=== PATIENT | male | born 1975 | race Hispanic/Latino ===

== ENCOUNTER 2019-07-01 11:20 | Inpatient (IN) | payer OTHER ==
[~2019-07-01] VITALS: Ht 175.3 cm; Wt 114.3 kg
[2019-07-01] MEDS ORDERED: ACETAMINOPHEN 1000 MG/100 ML IV STA (12:01)
[2019-07-01] MEDS ORDERED: SODIUM CHLORIDE 0.9% 1000ML 1,000 ML IV STA (12:01)
[2019-07-01] MEDS ORDERED: SODIUM CHLORIDE 0.9% 1000ML 1,000 ML IV SCH (12:15)
[2019-07-01] MEDS ORDERED: CEFEPIME HCL 1 GM VIAL IV SCH (12:15)
[2019-07-01] MEDS ORDERED: CEFEPIME 1GM/NS 0.9% 50 ML 50 ML IV ONE (12:30)
[2019-07-01 12:34] LABS: BASOPHILS % 0.2 % (0.0-1.0); EOSINOPHILS # (AUTO) 0.1 (0.0-0.4); EOSINOPHILS % 0.6 % (0.0-6.0); HEMATOCRIT 45.8 % (38.2-49.6); HEMOGLOBIN 17.8 g/dL (14.0-18.0); LYMPHOCYTES # (AUTO) 1.9 (1.0-3.2); LYMPHOCYTES % 16.2 % (18.0-39.1); MEAN CORPUSCULAR HEMOGLOBIN 31.8 pg (28-32); MEAN CORPUSCULAR HGB CONC 38.9 g/dL (31-35); MEAN CORPUSCULAR VOLUME 81.9 fL (81-99); MONOCYTES # (AUTO) 0.8 (0.2-0.8); MONOCYTES % 7.3 % (4.4-11.3); NEUTROPHILS # (AUTO) 8.6 (2.1-6.9); NEUTROPHILS % 75.3 % (38.7-80.0); PLATELET COUNT 197 x10e3/uL (140-360); RED BLOOD COUNT 5.59 x10e6/uL (4.3-5.7); RED CELL DISTRIBUTION WIDTH 13.2 % (11.7-14.4)
[2019-07-01 12:37] LABS: BILIRUBIN,URINE SMALL (NEGATIVE); CLARITY,URINE CLEAR (CLEAR); COLOR,URINE YELLOW (YELLOW); LEUKOCYTE ESTERASE ,URINE NEGATIVE (NEGATIVE); NITRITE,URINE NEGATIVE (NEGATIVE); PROTEIN,URINE DIPSTICK 2+ (NEGATIVE); URINE UROBILINOGEN 0.2 mg/dL (0.2 - 1)
[2019-07-01 12:48] LABS: KETONES,URINE 2+ (NEGATIVE)
[2019-07-01 12:50] LABS: BACTERIA,URINE RARE /HPF; EPITHELIAL CELLS,URINE FEW /LPF; RBC,URINE 0-5 /HPF (0-5)
[2019-07-01 12:55] LABS: ALANINE AMINOTRANSFERASE 28 IU/L (0-55); ALBUMIN 3.8 g/dL (3.5-5.0); ALBUMIN/GLOBULIN RATIO 0.7 (0.8-2.0); ALKALINE PHOSPHATASE 75 IU/L (40-150); ANION GAP 18.8 mmol/L (8-16); BLOOD UREA NITROGEN 6 mg/dL (7-26); BUN/CREATININE RATIO 7 (6-25); CALCIUM 9.7 mg/dL (8.4-10.2); CARBON DIOXIDE 21 mmol/L (22-29); CHLORIDE 92 mmol/L (98-107); CREATININE, SERUM 0.82 mg/dL (0.72-1.25); EST GLOMERULAR FILTRATION RATE > 60 ML/MIN (60-); GLUCOSE 301 mg/dL (74-118); POTASSIUM 3.8 mmol/L (3.5-5.1); SODIUM 128 mmol/L (136-145)
[2019-07-01] MEDS ORDERED: ACETAMINOPHEN 325 MG TAB PO ONE (13:15)
--- NOTE | 2019-07-01 14:07 | Diagnostic Imaging Report ---
EXAMINATION: CT of the abdomen and pelvis with contrast. TECHNIQUE: Helical CT images of the abdomen and pelvis were performed from the lung bases to the lesser trochanters after the intravenous administration of 100 cc of Isovue 300 and the oral administration of none. Coronal and sagittal reformatted images were obtained.Dose modulation, iterative reconstruction, and/or weight based adjustment of the mA/kV was utilized to reduce the radiation dose to as low as reasonably achievable. COMPARISON: None. CLINICAL HISTORY:Abdominal pain DISCUSSION: ABDOMEN/PELVIS: LOWER THORAX:Unremarkable. HEPATOBILIARY: Hepatic steatosis without focal lesion. No intra-or extrahepatic biliary ductal dilation. The gallbladder is normal. SPLEEN: No splenomegaly. PANCREAS: Peripancreatic stranding extending superior to the pancreas. ADRENALS: No adrenal nodules. KIDNEYS/URETERS: No hydronephrosis, stones, or solid mass lesions. PELVIC ORGANS/BLADDER: The bladder is normal. PERITONEUM/RETROPERITONEUM: No free air or fluid. LYMPH NODES: No intra-abdominal, retroperitoneal, pelvic or inguinal lymphadenopathy. VESSELS: Unremarkable. GI TRACT: No distention or wall thickening. Appendix is normal. BONES AND SOFT TISSUE: No bony destructive lesions. No soft tissue abnormalities. IMPRESSION: Peripancreatic stranding may reflect uncomplicated pancreatitis. Correlate with laboratory values. Signed by: Dr. Chintan Cotter M.D. on 07/01/2019 2:03 PM
[2019-07-01] MEDS ORDERED: SODIUM CHLORIDE 0.9% 50ML 50 ML ONE (14:34)
[2019-07-01] MEDS ORDERED: IOPAMIDOL 370 MG/ML 200 ML INFUS..BTL INJ ONE (14:34)
[2019-07-01] MEDS ORDERED: MORPHINE SULFATE 2 MG/ML SYR 1ML IV PRN (14:45)
[2019-07-01] MEDS: ONDANSETRON HCL INJ 2MG/ML 2ML 2 MG/ML VIAL IV PRN ×2 (15:19→21:03)
[2019-07-01] MEDS: MORPHINE SULFATE INJ 4 MG/ML INJ 1ML IV PRN ×2 (15:19→21:03)
--- OUTSIDE RECORDS SUMMARY | 2019-07-01 15:22 | XMS REPORT ---
Author Author [facility] Address Unknown Phone Unavailable Care Team Providers Care Marketing And Public Relations Manager Name Role Phone JENNIFER LOPEZ Unavailable Unavailable Problems This patient has no known problems. Allergies, Adverse Reactions, Alerts This patient has no known allergies or adverse reactions. Medications This patient has no known medications. Results Test Description Test Time Test Comments Text Results Atomic Results Result Comments CT ABDOMEN/PELVIS W 2019-07-01 14:00:00 [place] [address] Patient Name: NAZARIO KRISHNAN MR #: [id number] : 1975 Age/Sex: 44/M Req #: [id number] Adm Physician: Ordered by: JENNIFER LOPEZ DO Report #: [id number] Location: ER Room/Bed: Procedure: [id number] CT/CT ABDOMEN/PELVIS W Exam Date: 07/01/19 Exam Time: 1330 REPORT STATUS: Signed EXAMINATION: CT of the abdomen and pelvis with contr ast. TECHNIQUE: Helical CT images of the abdomen and pelvis were performed from the lung bases to the lesser trochanters after the intravenous administration of 100 cc of Isovue 300 and the oral administration of none. Coronal and sagittal reformatted images were obtained.Dose modulation, iterative reconstruction, and/or weight based adjustment of the mA/kV was utilized to reduce the radiation dose to as low as reasonably achievable. COMPARISON: None. CLINICAL HISTORY:Abdominal pain DISCUSSION: ABDOMEN/PELVIS: LOWER THORAX:Unremarkable. HEPATOBILIARY: Hepatic steatosis without focal lesion. No intra-or extrahepatic biliary ductal dilation. The gallbladder is normal. SPLEEN: No splenomegaly. PANCREAS: Peripancreatic stranding extending superior to the pancreas. ADRENALS: No adrenal nodules. KIDNEYS/URETERS: No hydronephrosis, stones, or solid mass lesions. PELVIC ORGANS/BLADDER: The bladder is normal. PERITONEUM/RETROPERITONEUM: No free air or fluid. LYMPH NODES: No intra- abdominal, retroperitoneal, pelvic or inguinal lymphadenopathy. VESSELS: Unremarkable. GI TRACT: No distention or wall thickening. Appendix is normal. BONES AND SOFT TISSUE: No bony destructive lesions. No soft tissue abnormalities. IMPRESSION: Peripancreatic stranding may reflect uncomplicated pancreatitis. Correlate with laboratory values. Signed by: Dr. Renata Millan M.D. on 07/01/2019 2:03 PM Dictated By: RENATA MILLAN MD 140 Transcribed By: ROSA on 07/01/19 1403 COPY TO: JENNIFER LOPEZ DO
--- NOTE | 2019-07-01 15:46 | NUR ---
Severe Sepsis Time: 1403 Source: Pancreatitis confirmed on CT 1403 SIRS: HR 118 RR 20 Organ Dysfunction: Lactic Acid (1249- resulted) Blood cultures collected (1232) #1 Lactic Acid collected (1157) Broad Spectrum Antibiotic: Cefepime given (1257) #2 Lactic Acid (1417) 1.7 SEP-1 Bundle complete, pt stable for admission under the impression of Pancreatitis
[2019-07-01 17:17] LABS: ANION GAP 18.2 mmol/L (8-16); BLOOD UREA NITROGEN 6 mg/dL (7-26); BUN/CREATININE RATIO 9 (6-25); CALCIUM 9.1 mg/dL (8.4-10.2); CARBON DIOXIDE 19 mmol/L (22-29); CHLORIDE 98 mmol/L (98-107); CREATININE, SERUM 0.68 mg/dL (0.72-1.25); EST GLOMERULAR FILTRATION RATE > 60 ML/MIN (60-); GLUCOSE 261 mg/dL (74-118); POTASSIUM 4.2 mmol/L (3.5-5.1); SODIUM 131 mmol/L (136-145)
--- NOTE | 2019-07-01 17:57 | History and Physical ---
HISTORY OF PRESENT ILLNESS: Joe Summers is 44-year-old male with past medical history positive for hypertension, diabetes, history of alcohol abuse, came to the hospital sent from the clinic due to severe abdominal pain and fever. He was found to have pancreatitis and admitted to the hospital. REVIEW OF SYSTEMS: CARDIOVASCULAR: No chest pain or palpitation. RESPIRATORY: No shortness of breath. No cough. GASTROINTESTINAL: No nausea, no vomiting, no diarrhea, but he does have diffuse abdominal pain. GENITOURINARY: No frequency or dysuria. ALLERGIES: NOT ALLERGIC TO ANYTHING. SOCIAL HISTORY: He does not smoke, but he does drink alcohol. PHYSICAL EXAMINATION: HEART: Showed regular rhythm. Normal S1, S2 sound. LUNGS: Clear bilaterally. ABDOMEN: Soft, but mild tenderness. EXTREMITIES: Show no evidence of cyanosis or hematoma. IMAGING DATA: On the CT of the abdomen, preliminary report showed diffuse peripancreatic inflammation. FINAL IMPRESSION: 1. Fever. 2. Acute pancreatitis. 3. Uncontrolled diabetes mellitus type 2. 4. Obesity. 5. History of alcohol use. PLAN OF TREATMENT: N.p.o., IV fluids, IV antibiotics. Blood culture and urine culture going to be sent. Pain control. We are going to put him on sliding scale insulin q.6 hours. MD EVE Whittington/KAMILLA /[id number]
--- NOTE | 2019-07-01 21:13 | NUR ---
ORDERS REC'D FROM DR. MORA--SEE CPOE
[2019-07-01] MEDS: SODIUM CHLORIDE 0.9% 1000ML 1,000 ML IV SCH (21:54)
[2019-07-01] MEDS: ACETAMINOPHEN 325 MG TAB PO PRN (21:54)
[2019-07-01 22:13] VITALS: BP 138/75
--- NOTE | 2019-07-01 22:45 | NUR ---
RECEIVED PATIENT FROM ER IN STABLE CONDITION, NO SIGNS OF RESPIRATORY DISTRESS NOTED. FAMILY MEMBER AT BEDSIDE AND PATIENT VOICES PAIN AT A LEVEL OF 3 AND WAS PREVIOUSLY MEDICATED DOWNSTAIRS. BED IS LOCKED AND IN LOWEST POSITION, IV FLUIDS RUNNING AT ORDERED RATE, CALL LIGHT WITHIN EASY REACH, WILL CONTINUE TO MONITOR.
[2019-07-01 22:55] VITALS: BP 138/75
[2019-07-01 23:06] VITALS: BP 138/75
[2019-07-02] VITALS (7 sets, daily range): BP systolic 135–147; BP diastolic 78–85
[2019-07-02] MEDS: MORPHINE SULFATE INJ 4 MG/ML INJ 1ML IV PRN ×4 (02:33→22:04)
[2019-07-02] MEDS: ONDANSETRON HCL INJ 2MG/ML 2ML 2 MG/ML VIAL IV PRN ×4 (02:33→22:04)
[2019-07-02] MEDS: SODIUM CHLORIDE 0.9% 1000ML 1,000 ML IV SCH ×3 (05:17→21:26)
--- NOTE | 2019-07-02 07:00 | NUR ---
RECEIVED AM REPORT AND ROUNDS DONE. PT IS SLEEPING IN BED, NO S/S OF DISTRESS. CALL LIGHT WITHIN REACH AND SIDE RAILS UP. FAMILY IS AT THE BEDSIDE
[2019-07-02] MEDS: ACETAMINOPHEN 325 MG TAB PO PRN ×3 (10:50→21:46)
--- NOTE | 2019-07-02 15:28 | Progress Note ---
DATE: 07/02/2019 Internal Medicine Progress Note SUBJECTIVE: The patient is complaining of abdominal pain. He was diagnosed with pancreatitis based on the CT findings report. PHYSICAL EXAMINATION: HEART: Regular rhythm. Normal S1, S2 sound. LUNGS: Clear bilaterally. ABDOMEN: Soft. Epigastric tenderness and periumbilical tenderness. EXTREMITIES: No evidence of cyanosis or hematoma. LABORATORY DATA: On the blood work, we have CBC; white blood count 11,444, hemoglobin 17.8, hematocrit 45.8, platelet count 187,000. On the CMP, we have a sodium which is low at 131, potassium 4.2, chloride 98, carbon dioxide 18, BUN 6, creatinine 0.68, glucose 261 229. Lactic acid 1.7, calcium 9.1. Lipase is 78. Urinalyses showed he has a few white blood cells. On the CT of the abdomen did show some evidence of peripancreatic stranding, which may reflect uncomplicated pancreatitis, correlate with laboratory values. FINAL IMPRESSION: 1. Acute alcoholic pancreatitis. 2. Fever. 3. Uncontrolled diabetes mellitus type 2. 4. Obesity. 5. Alcohol abuse. PLAN OF TREATMENT: P.o. IV fluids, pain medication for control of the pain. So far, the lipase has been normal. We are going to recheck the lipase levels. Continue normal saline at 135 mL an hour, Tylenol 650 mg p.o. q. 4 hours as needed for pain or fever, morphine 4 mg IV q. 4 hours as needed for severe pain, Zofran 4 mg IV q. 4 hours as needed. I am going to order a lipase level tomorrow. The patient will continue n.p.o. status. We are going to get a Gastroenterology consult with Dr. Brando Otoole for pancreatitis. MD EVE Whittington/KAMILLA /[id number]
--- NOTE | 2019-07-02 21:25 | NUR ---
PATIENT RESTING IN BED IN STABLE CONDITION, NO SIGNS OF RESPIRATORY DISTRESS NOTED. FAMILY MEMBER AT BEDSIDE AND PATIENT VOICES PAIN AT A LEVEL OF 7 AND WAS MEDICATED ORDERED. PATIENT STILL NPO, BED IS LOCKED AND IN LOWEST POSITION, IV FLUIDS RUNNING AT ORDERED RATE, CALL LIGHT WITHIN EASY REACH, WILL CONTINUE TO MONITOR.
[2019-07-02] MEDS ORDERED: LACTATED RINGER'S 1,000 ML IV ONE (23:15)
--- NOTE | 2019-07-02 23:29 | NUR ---
SPOKE WITH DR. DEE REGARDING THE PATIENT. ORDERED TO GIVE LR AT 200 ML/HR.
[2019-07-02] MEDS: LACTATED RINGER'S 1,000 ML IV SCH (23:39)
[2019-07-03] VITALS (8 sets, daily range): BP systolic 135–156; BP diastolic 70–81
[2019-07-03] MEDS: LACTATED RINGER'S 1,000 ML IV SCH ×4 (04:25→21:00)
[2019-07-03] MEDS: ACETAMINOPHEN 325 MG TAB PO PRN ×4 (06:15→19:27)
--- NOTE | 2019-07-03 07:00 | NUR ---
RECEIVED AM REPORT AND ROUNDS DONE. PT IS ALERT RESTING IN BED, NO S/S OF DISTRESS. CALL LIGHT WITHIN REACH AND INSTRUCTED PT TO CALL NURSE FOR HELP
--- NOTE | 2019-07-03 14:03 | Progress Note ---
DATE: 07/03/2019 Internal Medicine Progress Note SUBJECTIVE: He is doing better. He is tolerating diet. PHYSICAL EXAMINATION: HEART: Showed regular rhythm. Normal S1, S2 sound. LUNGS: Clear bilaterally. ABDOMEN: Soft and nontender. No distention. No visceromegaly. LABORATORY DATA: On the BMP; sodium 131, potassium 4.2, chloride 98, CO2 of 19, BUN 6, creatinine 0.68, glucose 261. The CBC, white blood count 96677, hemoglobin 17.8, hematocrit 45.8, platelet count 197,000. AST 18, ALT 28, total bilirubin 1.1, alkaline phosphatase 75. Lipase is only 29. FINAL IMPRESSION: 1. Acute pancreatitis may be related to alcohol versus hypertriglyceridemia. 2. Hypertension. 3. Diabetes mellitus, type 2. PLAN OF TREATMENT: He is tolerating the liquid diet. Continue Ringer lactate 200 mL an hour, Zofran 4 mg IV q.4 hours, Tylenol 650 mg q.4 hours, morphine 4 mg IV q.4 hours. We are going to repeat a BMP tomorrow. Diet will be increased as tolerated. Oumar Patton MD LAS/MODL /[id number]
[2019-07-03 14:43] LABS: BASOPHILS % 0.1 % (0.0-1.0); EOSINOPHILS # (AUTO) 0.2 (0.0-0.4); EOSINOPHILS % 2.3 % (0.0-6.0); HEMATOCRIT 40.6 % (38.2-49.6); LYMPHOCYTES # (AUTO) 1.5 (1.0-3.2); MEAN CORPUSCULAR HEMOGLOBIN 27.8 pg (28-32); MEAN CORPUSCULAR VOLUME 86.9 fL (81-99); MONOCYTES # (AUTO) 0.6 (0.2-0.8); MONOCYTES % 7.7 % (4.4-11.3); NEUTROPHILS # (AUTO) 5.3 (2.1-6.9); NEUTROPHILS % 69.5 % (38.7-80.0); PLATELET COUNT 153 x10e3/uL (140-360); RED BLOOD COUNT 4.67 x10e6/uL (4.3-5.7); RED CELL DISTRIBUTION WIDTH 13.7 % (11.7-14.4)
--- NOTE | 2019-07-03 19:20 | NUR ---
Rounds completed with morning nurse. Pt alert and oriented to name, lying in bed HOB 30. Denies pain at this time. Call sheth within reach. Mother at bedside. Will continue to monitor.
[2019-07-03] MEDS ORDERED: INSULIN GLARGINE 100 UNITS/ML VIAL SQ SCH (21:00)
--- NOTE | 2019-07-03 21:07 | NUR ---
Spoke with Dr. Patton regarding elevated BS 206, no home medications are started, ordered Lantus 10units daily, Glyburide 5mg daily, and medium sliding scale Regular insulin.
[2019-07-03] MEDS ORDERED: DEXTROSE 50% SYRINGE 50 ML IV PRN (21:15)
[2019-07-03] MEDS ORDERED: GLYBURIDE 5 MG TAB PO ONE (21:15)
[2019-07-04] VITALS: BP 132/80
[2019-07-04] MEDS: ACETAMINOPHEN 325 MG TAB PO PRN ×2 (00:55→10:01)
[2019-07-04] MEDS: LACTATED RINGER'S 1,000 ML IV SCH ×3 (01:00→11:30)
[2019-07-04 04:00] VITALS: BP 132/63
--- NOTE | 2019-07-04 06:30 | NUR ---
Pt lying in bed HOB 30 with eyes closed. No acute distress noted. Bed low and locked.
--- NOTE | 2019-07-04 07:00 | NUR ---
received am report and rounds done. pt is alert resting in bed, no s/s of distress. call light within reach and instructed pt to call nurse for help. family is at the bedside
[2019-07-04] MEDS: INSULIN REGULAR, HUMAN 100 UNIT/1 ML 3ML VIAL SQ SCH ×3 (07:30→17:15)
[2019-07-04 07:45] VITALS: BP 158/84
[2019-07-04 07:55] LABS: ALANINE AMINOTRANSFERASE 14 IU/L (0-55); ALBUMIN 2.6 g/dL (3.5-5.0); ALBUMIN/GLOBULIN RATIO 0.6 (0.8-2.0); ALKALINE PHOSPHATASE 73 IU/L (40-150); ANION GAP 13.6 mmol/L (8-16); BLOOD UREA NITROGEN 6 mg/dL (7-26); BUN/CREATININE RATIO 10 (6-25); CALCIUM 9.4 mg/dL (8.4-10.2); CARBON DIOXIDE 26 mmol/L (22-29); CHLORIDE 103 mmol/L (98-107); CREATININE, SERUM 0.59 mg/dL (0.72-1.25); EST GLOMERULAR FILTRATION RATE > 60 ML/MIN (60-); GLUCOSE 177 mg/dL (74-118); POTASSIUM 3.6 mmol/L (3.5-5.1); SODIUM 139 mmol/L (136-145)
[2019-07-04] MEDS ORDERED: GLYBURIDE 5 MG TAB PO SCH (08:00)
[2019-07-04] MEDS ORDERED: FENOFIBRATE 145 MG TAB PO SCH (09:00)
[2019-07-04 10:02] VITALS: BP 158/84
[2019-07-04 11:51] VITALS: BP 152/82
--- NOTE | 2019-07-04 15:12 | Discharge Summary ---
HOSPITAL COURSE: The patient is a 44-year-old male, who has a past medical history positive for diabetes, hypertension, hypercholesterolemia, came to the hospital with abdominal pain. He was found to have mild pancreatitis. He was placed n.p.o., IV fluids, pain medication. The pancreatitis resolved. He was found to have hypertriglyceridemia, started on TriCor. His blood pressure was out of control. We are going to start him on lisinopril. The patient is going home today. He is able to tolerate the 1800 calorie ADA diet and follow up with me in a week. PHYSICAL EXAMINATION: HEART: Showed regular rhythm. Normal S1, S2 sound. LUNGS: Clear bilaterally. ABDOMEN: Soft, nontender. No distention. No visceromegaly. FINAL IMPRESSION: 1. Acute pancreatitis. 2. Fever, which is resolved. 3. Uncontrolled diabetes mellitus type 2. 4. Obesity. 5. Hypertension. 6. Alcohol abuse. PLAN OF TREATMENT: The patient was told to abstain from drinking. He is going to continue with Lantus 10 units at bedtime and glyburide. He is taking apparently 5 mg daily. Continue with fenofibrate 145 mg daily. We are going to start him on lisinopril 10 mg daily. Follow up with me in a week. He can tolerate the diet. The blood culture and urine culture were completely negative. MD EVE Whittington/KAMILLA /[id number]
[2019-07-04 15:57] VITALS: BP 156/84
== END 2019-07-04 17:50 | disposition home or self-care (01) | DRG 439 ==
LOC: ER 11:20 → ERHOLD 15:18 → MED/SURG3 22:15
PROVIDERS: ADMIT Internal Medicine; ATTEND Internal Medicine
DX: K85.20 Alcohol induced acute pancreatitis without necrosis or infection (principal); E87.1 Hypo-osmolality and hyponatremia; E66.9 Obesity, unspecified; Z68.37 Body mass index [BMI] 37.0-37.9, adult; F10.10 Alcohol abuse, uncomplicated; I10 Essential (primary) hypertension; E78.00 Pure hypercholesterolemia, unspecified; E78.1 Pure hyperglyceridemia; Z79.4 Long term (current) use of insulin; E11.65 Type 2 diabetes mellitus with hyperglycemia
CPT/HCPCS: 36415; 74177; 80048; 80053; 81001; 82270; 82948; 83605; 83690; 84478; 85025; 87040; 87086; 99284; J0692; J1815; J1817; J2270; J2405; J7030; J7121; Q9967

== ENCOUNTER → 2020-03-07 | Day surgery (SDC) | payer OTHER ==
[~2020-03-07] MED LIST: ASPIR 8181 MG PO; ATORVASTATIN CA20 MG PO; BASAGLAR K100 UNIT/1 INJ; DEXMEDETOMIDINE HCL 200 MCG/2 ML VIAL ONE; ETOMIDATE 2 MG/ML 10 ML INJ IV ONE; GLIMEPIRIDE2 MG PO; GLUCAGON FOR INJ 1 MG VIAL ONE; HYOSCYAMINE 0.125 MG TAB ONE; INSULIN REGULAR, HUMAN 100 UNIT/1 ML 3ML VIAL ONE; LIDOCAINE HCL 2% LOCAL INJ 5 ML SDV VIAL INJ ONE; LOSARTAN POTASS25 MG PO; PROPOFOL IV EMULSION 10 MG/ML 20 ML VIAL ONE; VASCEPA1 GM PO
[2020-03-07 11:30] VITALS: BP 126/86
--- NOTE | 2020-03-07 11:49 | Operative Report ---
DATE OF PROCEDURE: 03/07/2020 SURGEON: Brando Otoole MD PROCEDURE: Colonoscopy with polypectomy and biopsy. INDICATIONS FOR COLONOSCOPY: Rectal bleeding. MEDICATIONS: The patient was done under MAC, please see anesthesiologist's note. PROCEDURE IN DETAIL: With the patient in left lateral decubitus position, flexible fiberoptic Olympus colonoscope was inserted into the rectum with ease and advanced all the way to the cecum. The scope was then withdrawn slowly. Mucosa overlying the cecum and ascending colon appeared to be within normal limits. One polyp was cold biopsied from the transverse colon. There were patchy, mild inflammatory changes noted in the left colon. Random biopsies were obtained. One polyp was hot biopsied from the descending colon. One polyp was hot snared from the rectum. The scope was then retroflexed into the distal rectum and moderate-sized internal hemorrhoids were noted, none of which was actively bleeding. The scope was then straightened out and it was subsequently withdrawn. The patient tolerated the procedure well. IMPRESSION: 1. Transverse colon polyp, cold biopsied. 2. Descending colon polyp, hot biopsied. 3. Mild patchy left-sided colitis. 4. Rectal polyp, hot snared. 5. Internal hemorrhoids, none actively bleeding. PLAN: Follow up histology. Initiate VSL #3 one p.o. b.i.d. The patient might benefit from a followup colonoscopy in 3 years. If rectal bleeding recurs, the patient will need Meckel's scan, and if negative then an EGD. Brando Otoole MD [facility] [place] [place] /[id number] cc: Oumar Patton MD
== END | disposition home or self-care (01) ==
LOC: OR 08:20
PROVIDERS: ATTEND Internal Medicine Gastroenterology
DX: K51.50 Left sided colitis without complications (principal); D12.4 Benign neoplasm of descending colon; D12.8 Benign neoplasm of rectum; K64.8 Other hemorrhoids; I10 Essential (primary) hypertension; E78.5 Hyperlipidemia, unspecified; E11.9 Type 2 diabetes mellitus without complications; Z01.810 Encounter for preprocedural cardiovascular examination; Z01.812 Encounter for preprocedural laboratory examination; Z11.59 Encounter for screening for other viral diseases; Z79.82 Long term (current) use of aspirin; Z79.84 Long term (current) use of oral hypoglycemic drugs; Z79.4 Long term (current) use of insulin
CPT/HCPCS: 36415; 45380; 45384; 45385; 82948; 93005; J1610; J1817; J2001; U0002

== ENCOUNTER 2022-01-14 11:00 | Outpatient (RCR) | payer BC ==
[~2022-01-14 11:00] MED LIST changes: -DEXMEDETOMIDINE HCL 200 MCG/2 ML VIAL ONE; -ETOMIDATE 2 MG/ML 10 ML INJ IV ONE; -GLUCAGON FOR INJ 1 MG VIAL ONE; -HYOSCYAMINE 0.125 MG TAB ONE; -INSULIN REGULAR, HUMAN 100 UNIT/1 ML 3ML VIAL ONE; -LIDOCAINE HCL 2% LOCAL INJ 5 ML SDV VIAL INJ ONE; -PROPOFOL IV EMULSION 10 MG/ML 20 ML VIAL ONE
== END 2022-01-22 ==
LOC: PT 11:00
PROVIDERS: ATTEND Internal Medicine
DX: M54.50 Low back pain, unspecified (principal); M62.81 Muscle weakness (generalized)

== ENCOUNTER → 2022-01-29 | Outpatient (CLI) | payer BC | LOC: NM 09:24 | PROVIDERS: ATTEND Internal Medicine Gastroenterology | DX: K62.5 Hemorrhage of anus and rectum (principal) | CPT/HCPCS: 78290; A9512 ==

== ENCOUNTER 2022-02-01 11:09 | Outpatient (RCR) | payer BC ==
[2022-02-06] MEDS ORDERED: FARXIGA5 MG PO (13:59)
[2022-02-08] MEDS ORDERED: VSL#3 CAPSULE1 EACH PO (10:19)
[2022-02-08] MEDS ORDERED: IBUPROFEN200 MG PO (10:19)
[2022-02-08] MEDS ORDERED: NEURONTIN300 MG PO (10:19)
[2022-02-08] MEDS ORDERED: TRICOR145 MG PO (10:19)
[2022-02-08] MEDS ORDERED: TRESIBA FL100 UNIT/1 SC (10:19)
== END 2022-02-21 ==
LOC: PT 11:09
PROVIDERS: ATTEND Internal Medicine
DX: M54.50 Low back pain, unspecified (principal); M62.81 Muscle weakness (generalized)
CPT/HCPCS: 97139

== ENCOUNTER → 2022-02-11 | Day surgery (SDC) | payer BC ==
[~2022-02-11] MED LIST changes: +FARXIGA5 MG PO; +FENTANYL CITRATE/PF 100MCG/2 ML INJ ONE; +HYOSCYAMINE SULFATE 0.5 MG/ML INJ ONE; +IBUPROFEN200 MG PO; +INSULIN REGULAR, HUMAN 100 UNIT/1 ML ONE; +LIDOCAINE HCL 2% LOCAL INJ 5 ML SDV VIAL INJ ONE; +MIDAZOLAM HCL 2 MG/2 ML VIAL ONE; +NEURONTIN300 MG PO; +PROPOFOL IV EMULSION 10 MG/ML 20 ML VIAL ONE; +TRESIBA FL100 UNIT/1 SC; +TRICOR145 MG PO; +VSL#3 CAPSULE1 EACH PO
[2022-02-11 15:15] VITALS: BP 122/82
== END | disposition home or self-care (01) ==
LOC: OR 11:16
PROVIDERS: ATTEND Internal Medicine Gastroenterology
DX: K62.5 Hemorrhage of anus and rectum (principal); K63.5 Polyp of colon; Q27.39 Arteriovenous malformation, other site; K64.8 Other hemorrhoids; Z71.3 Dietary counseling and surveillance; I10 Essential (primary) hypertension; E11.9 Type 2 diabetes mellitus without complications; Z01.810 Encounter for preprocedural cardiovascular examination; Z20.822 Contact with and (suspected) exposure to COVID-19; Z79.82 Long term (current) use of aspirin; Z79.4 Long term (current) use of insulin; Z79.899 Other long term (current) drug therapy; Z68.34 Body mass index [BMI] 34.0-34.9, adult
CPT/HCPCS: 36415; 45380; 45388; 82948; 93005; J1980; J2001; J2250; J2704; J3010; U0002; 45378; J1817

== ENCOUNTER 2022-02-22 12:39 | Outpatient (RCR) | payer BC ==
[~2022-02-22 12:39] MED LIST changes: -FENTANYL CITRATE/PF 100MCG/2 ML INJ ONE; -HYOSCYAMINE SULFATE 0.5 MG/ML INJ ONE; -INSULIN REGULAR, HUMAN 100 UNIT/1 ML ONE; -LIDOCAINE HCL 2% LOCAL INJ 5 ML SDV VIAL INJ ONE; -MIDAZOLAM HCL 2 MG/2 ML VIAL ONE; -PROPOFOL IV EMULSION 10 MG/ML 20 ML VIAL ONE
== END 2022-03-24 ==
LOC: PT 12:39
PROVIDERS: ATTEND Internal Medicine
DX: M54.50 Low back pain, unspecified (principal); M62.81 Muscle weakness (generalized)

== ENCOUNTER 2022-03-29 01:27 | Inpatient (IN) | payer BC ==
[2022-03-29] VITALS (9 sets, daily range): BP systolic 116–151; BP diastolic 73–90
[~2022-03-29] VITALS: Ht 175.3 cm; Wt 108.9 kg
[2022-03-29] MEDS ORDERED: ONDANSETRON HCL INJ 2MG/ML 2ML 2 MG/ML VIAL IV STA (01:42)
[2022-03-29] MEDS ORDERED: Morphine 4mg INJECTION 4 MG/ML INJ IV STA (01:42)
[2022-03-29] MEDS ORDERED: SODIUM CHLORIDE 0.9% 1000ML 1,000 ML IV SCH ×2 (01:45→02:45)
[2022-03-29 01:56] LABS: BASOPHILS # (AUTO) 0.1 (0.0-0.1); BASOPHILS % 0.4 % (0.0-1.0); EOSINOPHILS % 0.2 % (0.0-6.0); HEMOGLOBIN 16.1 g/dL (14.0-18.0); LYMPHOCYTES # (AUTO) 1.5 (1.0-3.2); LYMPHOCYTES % 10.2 % (18.0-39.1); MEAN CORPUSCULAR HEMOGLOBIN 30.1 pg (28-32); MEAN CORPUSCULAR HGB CONC 35.8 g/dL (31-35); MEAN CORPUSCULAR VOLUME 84.3 fL (81-99); MONOCYTES % 6.8 % (4.4-11.3); NEUTROPHILS # (AUTO) 11.7 (2.1-6.9); NEUTROPHILS % 81.4 % (38.7-80.0); PLATELET COUNT 203 x10e3/uL (140-360); RED BLOOD COUNT 5.34 x10e6/uL (4.3-5.7); RED CELL DISTRIBUTION WIDTH 13.9 % (11.7-14.4)
[2022-03-29 02:15] LABS: LIPASE 148 U/L (8-78)
[2022-03-29] MEDS ORDERED: SODIUM CHLORIDE 0.9% 1000ML 1,000 ML IV ONE (02:15)
[2022-03-29 02:21] LABS: ALBUMIN 2.9 g/dL (3.5-5.0); ALBUMIN/GLOBULIN RATIO 0.5 (0.8-2.0); ANION GAP 20.3 mmol/L (8-16); CALCIUM 9.1 mg/dL (8.4-10.2); CREATININE, SERUM 1.18 mg/dL (0.72-1.25); POTASSIUM 4.3 mmol/L (3.5-5.1)
[2022-03-29] MEDS ORDERED: DEXTROSE 50% SYRINGE 50 ML IV PRN (02:45)
[2022-03-29] MEDS ORDERED: ACETAMINOPHEN 325 MG TAB PO STA (02:48)
[2022-03-29] MEDS: Morphine 4mg INJECTION 4 MG/ML INJ IV PRN ×4 (07:40→20:25)
[2022-03-29] MEDS: ONDANSETRON HCL INJ 2MG/ML 2ML 2 MG/ML VIAL IV PRN ×4 (07:43→20:32)
[2022-03-29 08:02] LABS: AMPHETAMINES SCREEN,URINE NEGATIVE (NEGATIVE); PHENCYCLIDINE SCREEN,URINE NEGATIVE (NEGATIVE)
[2022-03-29 08:03] LABS: BENZODIAZEPINES SCREEN,URINE NEGATIVE (NEGATIVE)
[2022-03-29] MEDS: INSULIN REGULAR, HUMAN 100 UNIT/1 ML SQ SCH ×2 (10:18→12:00)
[2022-03-29] MEDS: FAMOTIDINE 20 MG/2 ML VIAL IV SCH ×2 (10:41→16:01)
[2022-03-29] MEDS: ENOXAPARIN SOD INJ 40 MG/0.4 ML SYR SC SCH (10:41)
[2022-03-29] MEDS: LACTATED RINGER'S 1,000 ML INJ SCH ×2 (10:44→13:10)
[2022-03-29 10:56] LABS: CHOL/HDL RATIO 40.2 (3.9-4.7); CHOLESTEROL 442 MD/DL (0-199); HDL CHOLESTEROL 11 MG/DL (40-60)
[2022-03-29 11:16] LABS: TRIGLYCERIDES 1618 MG/DL (0-149)
[2022-03-29] MEDS: INSULIN LISPRO 100 UNIT/1 ML 3ML VIAL SQ SCH ×2 (11:30→16:08)
[2022-03-29] MEDS ORDERED: IOPAMIDOL 370 MG/ML 100 ML INFUS..BTL INJ ONE (13:26)
[2022-03-29] MEDS: FENOFIBRATE 145 MG TAB PO SCH (20:19)
[2022-03-29] MEDS: ATORVASTATIN 40 MG TAB PO SCH (20:20)
[2022-03-29] MEDS: PANTOPRAZOLE SOD 40 MG TABEC PO SCH (20:20)
[2022-03-29] MEDS: DEXTROSE 5%/LACTATED RINGERS 1,000 ML IV SCH ×2 (20:26→23:53)
[2022-03-29] MEDS: INSULIN REGULAR, HUMAN 3ML VL 100 UNIT in SODIUM CHLORIDE 0.9% 99 ML IV SCH ×2 (23:52)
[2022-03-30] VITALS (17 sets, daily range): BP systolic 126–164; BP diastolic 68–96
[2022-03-30] MEDS: Morphine 4mg INJECTION 4 MG/ML INJ IV PRN ×5 (01:56→19:18)
[2022-03-30] MEDS: ONDANSETRON HCL INJ 2MG/ML 2ML 2 MG/ML VIAL IV PRN ×5 (02:02→19:18)
[2022-03-30] MEDS: INSULIN REGULAR, HUMAN 3ML VL 100 UNIT in SODIUM CHLORIDE 0.9% 99 ML IV SCH ×2 (05:15)
[2022-03-30 05:40] LABS: BASOPHILS % 0.3 % (0.0-1.0); EOSINOPHILS # (AUTO) 0.2 (0.0-0.4); EOSINOPHILS % 2.2 % (0.0-6.0); HEMOGLOBIN 13.3 g/dL (14.0-18.0); LYMPHOCYTES # (AUTO) 1.3 (1.0-3.2); LYMPHOCYTES % 14.1 % (18.0-39.1); MEAN CORPUSCULAR HEMOGLOBIN 28.9 pg (28-32); MEAN CORPUSCULAR VOLUME 82.4 fL (81-99); MONOCYTES # (AUTO) 0.7 (0.2-0.8); MONOCYTES % 7.3 % (4.4-11.3); NEUTROPHILS # (AUTO) 6.7 (2.1-6.9); NEUTROPHILS % 75.3 % (38.7-80.0); PLATELET COUNT 151 x10e3/uL (140-360); RED BLOOD COUNT 4.61 x10e6/uL (4.3-5.7); RED CELL DISTRIBUTION WIDTH 14.1 % (11.7-14.4)
[2022-03-30 06:06] LABS: ALBUMIN 2.3 g/dL (3.5-5.0); ANION GAP 11.1 mmol/L (8-16); BILIRUBIN,DIRECT 0.1 mg/dL (0.0-0.5); CALCIUM 8.9 mg/dL (8.4-10.2); CREATININE, SERUM 0.62 mg/dL (0.72-1.25)
[2022-03-30] MEDS: DEXTROSE 5%/LACTATED RINGERS 1,000 ML IV SCH ×3 (06:07→20:55)
[2022-03-30 06:09] LABS: POTASSIUM 3.1 mmol/L (3.5-5.1)
[2022-03-30 06:23] LABS: THYROID STIMULATING HORMONE 1.001 uIU/mL (0.350-4.940)
[2022-03-30 06:27] LABS: CHOL/HDL RATIO 32.8 (3.9-4.7); CHOLESTEROL 393 MD/DL (0-199); HDL CHOLESTEROL 12 MG/DL (40-60); TRIGLYCERIDES 916 MG/DL (0-149)
[2022-03-30] MEDS: FAMOTIDINE 20 MG/2 ML VIAL IV SCH ×2 (08:57→16:37)
[2022-03-30] MEDS: ENOXAPARIN SOD INJ 40 MG/0.4 ML SYR SC SCH (08:57)
[2022-03-30] MEDS ORDERED: INSULIN REGULAR, HUMAN 3ML VL 100 UNIT in SODIUM CHLORIDE 0.9% 99 ML IV SCH ×2 (10:00)
[2022-03-30] MEDS: POTASSIUM CHLORIDE 20MEQ/100ML 100 ML IV SCH ×3 (10:29→14:42)
[2022-03-30] MEDS: INSULIN LISPRO 100 UNIT/1 ML 3ML VIAL SQ SCH ×2 (16:37→21:00)
[2022-03-30] MEDS: FENOFIBRATE 145 MG TAB PO SCH (22:19)
[2022-03-30] MEDS: ATORVASTATIN 40 MG TAB PO SCH (22:20)
[2022-03-31] VITALS (7 sets, daily range): BP systolic 146–191; BP diastolic 70–88
[2022-03-31] MEDS: Morphine 4mg INJECTION 4 MG/ML INJ IV PRN ×5 (01:18→21:49)
[2022-03-31] MEDS: ONDANSETRON HCL INJ 2MG/ML 2ML 2 MG/ML VIAL IV PRN ×5 (01:18→21:45)
[2022-03-31] MEDS: DEXTROSE 5%/LACTATED RINGERS 1,000 ML IV SCH ×4 (03:35→21:43)
[2022-03-31 05:15] LABS: BASOPHILS % 0.1 % (0.0-1.0); EOSINOPHILS # (AUTO) 0.1 (0.0-0.4); EOSINOPHILS % 1.6 % (0.0-6.0); LYMPHOCYTES % 12.6 % (18.0-39.1); MEAN CORPUSCULAR HEMOGLOBIN 28.8 pg (28-32); MEAN CORPUSCULAR HGB CONC 33.3 g/dL (31-35); MEAN CORPUSCULAR VOLUME 86.3 fL (81-99); MONOCYTES # (AUTO) 0.7 (0.2-0.8); MONOCYTES % 8.7 % (4.4-11.3); NEUTROPHILS # (AUTO) 5.8 (2.1-6.9); NEUTROPHILS % 76.3 % (38.7-80.0); PLATELET COUNT 166 x10e3/uL (140-360); RED BLOOD COUNT 4.17 x10e6/uL (4.3-5.7); RED CELL DISTRIBUTION WIDTH 13.9 % (11.7-14.4)
[2022-03-31 05:38] LABS: ANION GAP 13.4 mmol/L (8-16); CALCIUM 8.7 mg/dL (8.4-10.2); CREATININE, SERUM 0.63 mg/dL (0.72-1.25); MAGNESIUM 1.6 MG/DL (1.3-2.1); POTASSIUM 3.4 mmol/L (3.5-5.1)
[2022-03-31] MEDS: PANTOPRAZOLE SOD 40 MG TABEC PO SCH (07:30)
[2022-03-31] MEDS: FAMOTIDINE 20 MG/2 ML VIAL IV SCH ×2 (08:43→17:23)
[2022-03-31] MEDS: ENOXAPARIN SOD INJ 40 MG/0.4 ML SYR SC SCH (08:43)
[2022-03-31] MEDS: INSULIN LISPRO 100 UNIT/1 ML 3ML VIAL SQ SCH ×4 (08:45→21:36)
[2022-03-31] MEDS ORDERED: METOPROLOL TARTRATE INJ 1 MG/ML VIAL IV PRN (09:15)
[2022-03-31] MEDS ORDERED: MAGNESIUM SULFATE 2GM/50ML 50 ML IV ONE (09:30)
[2022-03-31] MEDS ORDERED: POTASSIUM CHLORIDE 20MEQ/100ML 100 ML IV ONE (10:00)
[2022-03-31] MEDS: FENOFIBRATE 145 MG TAB PO SCH (21:26)
[2022-03-31] MEDS: ATORVASTATIN 40 MG TAB PO SCH (21:26)
[2022-04-01] VITALS (9 sets, daily range): BP systolic 147–155; BP diastolic 82–88
[2022-04-01] MEDS: ACETAMINOPHEN 325 MG TAB PO PRN (00:31)
[2022-04-01] MEDS: DEXTROSE 5%/LACTATED RINGERS 1,000 ML IV SCH ×4 (04:27→23:20)
[2022-04-01] MEDS: Morphine 4mg INJECTION 4 MG/ML INJ IV PRN ×5 (04:46→20:40)
[2022-04-01] MEDS: ONDANSETRON HCL INJ 2MG/ML 2ML 2 MG/ML VIAL IV PRN ×3 (04:57→21:04)
[2022-04-01 05:24] LABS: BASOPHILS % 0.5 % (0.0-1.0); EOSINOPHILS # (AUTO) 0.1 (0.0-0.4); EOSINOPHILS % 2.2 % (0.0-6.0); HEMATOCRIT 36.7 % (38.2-49.6); HEMOGLOBIN 12.1 g/dL (14.0-18.0); MEAN CORPUSCULAR HEMOGLOBIN 27.8 pg (28-32); MEAN CORPUSCULAR VOLUME 84.2 fL (81-99); MONOCYTES # (AUTO) 0.7 (0.2-0.8); MONOCYTES % 10.6 % (4.4-11.3); NEUTROPHILS # (AUTO) 4.5 (2.1-6.9); NEUTROPHILS % 69.8 % (38.7-80.0); PLATELET COUNT 186 x10e3/uL (140-360); RED BLOOD COUNT 4.36 x10e6/uL (4.3-5.7); RED CELL DISTRIBUTION WIDTH 13.6 % (11.7-14.4)
[2022-04-01 05:59] LABS: ANION GAP 14.2 mmol/L (8-16); CALCIUM 8.8 mg/dL (8.4-10.2); CREATININE, SERUM 0.6 mg/dL (0.72-1.25); MAGNESIUM 1.7 MG/DL (1.3-2.1); POTASSIUM 3.2 mmol/L (3.5-5.1)
[2022-04-01] MEDS: INSULIN LISPRO 100 UNIT/1 ML 3ML VIAL SQ SCH ×4 (08:30→20:49)
[2022-04-01] MEDS: PANTOPRAZOLE SOD 40 MG TABEC PO SCH (08:33)
[2022-04-01] MEDS: ENOXAPARIN SOD INJ 40 MG/0.4 ML SYR SC SCH (08:34)
[2022-04-01] MEDS: FAMOTIDINE 20 MG/2 ML VIAL IV SCH ×2 (08:35→16:01)
[2022-04-01] MEDS ORDERED: POTASSIUM CHLORIDE 20MEQ/100ML 300 ML IV ONE (10:45)
[2022-04-01] MEDS ORDERED: SODIUM CHLORIDE 0.9% 250ML 0 ML ONE (17:22)
[2022-04-01] MEDS: FENOFIBRATE 145 MG TAB PO SCH (20:38)
[2022-04-01] MEDS: ATORVASTATIN 40 MG TAB PO SCH (20:38)
[2022-04-01] MEDS: INSULIN GLARGINE 100 UNITS/ML VIAL SQ SCH (20:49)
[2022-04-02] VITALS (8 sets, daily range): BP systolic 137–162; BP diastolic 83–91
[2022-04-02] MEDS: Morphine 4mg INJECTION 4 MG/ML INJ IV PRN (03:20)
[2022-04-02] MEDS: ONDANSETRON HCL INJ 2MG/ML 2ML 2 MG/ML VIAL IV PRN (03:20)
[2022-04-02] MEDS: DEXTROSE 5%/LACTATED RINGERS 1,000 ML IV SCH ×3 (05:27→18:45)
[2022-04-02] MEDS: FAMOTIDINE 20 MG/2 ML VIAL IV SCH ×2 (08:33→16:59)
[2022-04-02] MEDS: PANTOPRAZOLE SOD 40 MG TABEC PO SCH (08:33)
[2022-04-02] MEDS: ENOXAPARIN SOD INJ 40 MG/0.4 ML SYR SC SCH (08:33)
[2022-04-02] MEDS: INSULIN LISPRO 100 UNIT/1 ML 3ML VIAL SQ SCH ×4 (08:34→21:50)
[2022-04-02] MEDS: ATORVASTATIN 40 MG TAB PO SCH (22:05)
[2022-04-02] MEDS: FENOFIBRATE 145 MG TAB PO SCH (22:05)
[2022-04-02] MEDS: LACTATED RINGER'S 1,000 ML INJ SCH (22:08)
[2022-04-02] MEDS: ACETAMINOPHEN 325 MG TAB PO PRN (22:12)
[2022-04-02] MEDS: INSULIN GLARGINE 100 UNITS/ML VIAL SQ SCH (22:25)
[2022-04-03] VITALS (9 sets, daily range): BP systolic 131–152; BP diastolic 81–90
[2022-04-03 05:45] LABS: BASOPHILS % 0.9 % (0.0-1.0); EOSINOPHILS # (AUTO) 0.2 (0.0-0.4); EOSINOPHILS % 3.8 % (0.0-6.0); HEMOGLOBIN 13.5 g/dL (14.0-18.0); LYMPHOCYTES # (AUTO) 1.2 (1.0-3.2); LYMPHOCYTES % 24.9 % (18.0-39.1); MEAN CORPUSCULAR HEMOGLOBIN 28.1 pg (28-32); MEAN CORPUSCULAR HGB CONC 33.8 g/dL (31-35); MEAN CORPUSCULAR VOLUME 83.3 fL (81-99); MONOCYTES # (AUTO) 0.6 (0.2-0.8); MONOCYTES % 12.8 % (4.4-11.3); NEUTROPHILS # (AUTO) 2.6 (2.1-6.9); NEUTROPHILS % 54.4 % (38.7-80.0); PLATELET COUNT 205 x10e3/uL (140-360); RED CELL DISTRIBUTION WIDTH 13.1 % (11.7-14.4)
[2022-04-03 06:15] LABS: ALBUMIN 2.3 g/dL (3.5-5.0); ANION GAP 11.3 mmol/L (8-16); BILIRUBIN,DIRECT 0.3 mg/dL (0.0-0.5); CALCIUM 9.2 mg/dL (8.4-10.2); CHOL/HDL RATIO 17.9 (3.9-4.7); CREATININE, SERUM 0.63 mg/dL (0.72-1.25); MAGNESIUM 1.7 MG/DL (1.3-2.1); POTASSIUM 3.3 mmol/L (3.5-5.1)
[2022-04-03] MEDS: INSULIN LISPRO 100 UNIT/1 ML 3ML VIAL SQ SCH ×4 (09:09→20:49)
[2022-04-03] MEDS: LACTATED RINGER'S 1,000 ML INJ SCH ×2 (09:10→19:31)
[2022-04-03] MEDS: ENOXAPARIN SOD INJ 40 MG/0.4 ML SYR SC SCH (09:10)
[2022-04-03] MEDS: Morphine 4mg INJECTION 4 MG/ML INJ IV PRN (09:11)
[2022-04-03] MEDS: ONDANSETRON HCL INJ 2MG/ML 2ML 2 MG/ML VIAL IV PRN (09:11)
[2022-04-03] MEDS ORDERED: POTASSIUM BICARBONATE/CIT AC 20 MEQ TABLET.EFF PO ONE (10:30)
[2022-04-03] MEDS ORDERED: POTASSIUM CHLORIDE 10MEQ EA PO ONE (11:30)
[2022-04-03] MEDS: LOSARTAN POTASSIUM 25 MG TAB PO SCH (12:21)
[2022-04-03] MEDS: ATORVASTATIN 40 MG TAB PO SCH (20:46)
[2022-04-03] MEDS: FENOFIBRATE 145 MG TAB PO SCH (20:46)
[2022-04-03] MEDS ORDERED: INSULIN GLARGINE 100 UNITS/ML VIAL SQ SCH (21:00)
[2022-04-04] VITALS: BP 141/94
[2022-04-04 04:00] VITALS: BP 129/79
[2022-04-04 06:00] LABS: ALBUMIN 2.3 g/dL (3.5-5.0); ALBUMIN/GLOBULIN RATIO 0.5 (0.8-2.0); ANION GAP 13.4 mmol/L (8-16); CREATININE, SERUM 0.68 mg/dL (0.72-1.25); POTASSIUM 3.4 mmol/L (3.5-5.1)
[2022-04-04] MEDS: LACTATED RINGER'S 1,000 ML INJ SCH (07:03)
[2022-04-04 08:22] VITALS: BP 144/90
[2022-04-04] MEDS: INSULIN LISPRO 100 UNIT/1 ML 3ML VIAL SQ SCH ×2 (08:26→12:39)
[2022-04-04 08:51] VITALS: BP 144/90
[2022-04-04] MEDS ORDERED: POTASSIUM CHLORIDE 10MEQ EA PO ONE (11:00)
[2022-04-04 11:47] VITALS: BP 124/79
[2022-04-04] MEDS: LOSARTAN POTASSIUM 25 MG TAB PO SCH (12:34)
[2022-04-04] MEDS: ENOXAPARIN SOD INJ 40 MG/0.4 ML SYR SC SCH (12:35)
== END 2022-04-04 13:35 | disposition home or self-care (01) | DRG 439 ==
LOC: ER 01:34 → ERHOLD 02:39 → MED/SURG2 03:50 → ICU 23:15 → MED/SURG3 03-30 18:30
PROVIDERS: ADMIT Internal Medicine; ATTEND Internal Medicine
DX: K85.80 Other acute pancreatitis without necrosis or infection (principal); E87.1 Hypo-osmolality and hyponatremia; K86.1 Other chronic pancreatitis; E11.9 Type 2 diabetes mellitus without complications; I10 Essential (primary) hypertension; E78.2 Mixed hyperlipidemia; E87.6 Hypokalemia; Z20.822 Contact with and (suspected) exposure to COVID-19; M54.30 Sciatica, unspecified side; G89.29 Other chronic pain; M54.9 Dorsalgia, unspecified; E11.42 Type 2 diabetes mellitus with diabetic polyneuropathy; Z79.4 Long term (current) use of insulin; E11.65 Type 2 diabetes mellitus with hyperglycemia; R00.0 Tachycardia, unspecified
CPT/HCPCS: 36415; 71045; 74177; 80048; 80053; 80061; 80076; 80307; 80320; 82150; 82948; 83605; 83690; 83735; 84443; 84484; 85025; 87040; 93005; 93306; 96361; 96372; 99284; J1650; J1815; J1817; J2270; J2405; J2543; J3475; J3480; J7030; J7050; J7121; Q9967